=== PATIENT | male | born 1975 | race Caucasian/White ===

== ENCOUNTER → 2022-04-24 | Day surgery (SDC) | payer BC ==
[~2022-04-24] VITALS: Ht 180.3 cm; Wt 86.2 kg
[~2022-04-24] MED LIST: VITAMIN D3125 MC1 PO; ZOCOR10 MG PO
[2022-04-24 07:15] VITALS: BP 124/76
[2022-04-24 08:34] VITALS: BP 110/71
[2022-04-24 08:47] VITALS: BP 106/52
[2022-04-24 09:03] VITALS: BP 103/73
== END | disposition home or self-care (01) ==
LOC: SDC 04-20 11:00
PROVIDERS: ATTEND Surgery
DX: Z12.11 Encounter for screening for malignant neoplasm of colon (principal); K62.89 Other specified diseases of anus and rectum; E78.00 Pure hypercholesterolemia, unspecified; Z90.49 Acquired absence of other specified parts of digestive tract; G35 Multiple sclerosis; Z79.899 Other long term (current) drug therapy

== ENCOUNTER → 2025-04-27 | Day surgery (SDC) | payer BC ==
[~2025-04-27] VITALS: Ht 180.3 cm; Wt 83.0 kg
[~2025-04-27] MED LIST changes: +Lactated Ringer's Solution 500 ML IV ONE; +Lidocaine Hydrochloride 2% 5 ML SDV IM ONE; +PROPOFOL 200 MG/20 ML VIAL IV ONE; +ZETIA10 MG PO
[2025-04-27 07:20] VITALS: BP 128/79
[2025-04-27 08:30] VITALS: BP 115/70
[2025-04-27 08:45] VITALS: BP 121/94
[2025-04-27 08:55] VITALS: BP 130/84
== END | disposition home or self-care (01) ==
LOC: SDC 04-23 09:30
PROVIDERS: ATTEND Surgery
DX: R10.13 Epigastric pain (principal); K22.89 Other specified disease of esophagus; E78.00 Pure hypercholesterolemia, unspecified; Z90.49 Acquired absence of other specified parts of digestive tract; Z98.890 Other specified postprocedural states; Z79.899 Other long term (current) drug therapy